=== PATIENT | male | born 1990 | race Caucasian/White ===

== ENCOUNTER 2022-06-20 05:31 | Emergency (ER) | payer BC ==
[~2022-06-20] VITALS: Ht 167.6 cm; Wt 77.1 kg
[2022-06-20 05:52] VITALS: BP_SYST 134
--- NOTE | 2022-06-20 06:02 | NUR ---
Patient triaged and placed in ED RM 5. VSS and patient appears in no acute distress at this time. MD MURRIETA notified of need for MSE. Report given to TABATHA Rose.
--- NOTE | 2022-06-20 06:15 | NUR ---
URINE WALKED TO LAB
--- NOTE | 2022-06-20 06:20 | NUR ---
C/O ABD PAIN X 2-3 DAYS ASSOCIATED WITH X1 EPISODE OF BURNING SENSATION DURING URINATION AFTER INTERCOURSE. DENIES N/V, FEVERS.
[2022-06-20 06:35] LABS: BILIRUBIN,URINE NEGATIVE (NEGATIVE); BLOOD, URINE NEGATIVE (NEGATIVE); CLARITY/URINE CLEAR (CLEAR); COLOR,URINE YELLOW (YELLOW); GLUCOSE,URINE NEGATIVE (NEGATIVE); KETONES,URINE NEGATIVE (NEGATIVE); LEUKOCYTE ESTERASE ,URINE NEGATIVE (NEGATIVE); NITRITE, URINE NEGATIVE (NEGATIVE); PROTEIN URINE NEGATIVE (NEGATIVE); UROBILINOGEN,URINE 0.2 (0.2-1.0)
--- NOTE | 2022-06-20 07:30 | NUR ---
DR. MURRIETA AT BEDSIDE TO DISCUSS POC.
[2022-06-20 07:45] VITALS: BP_SYST 213
--- NOTE | 2022-06-20 07:46 | NUR ---
Patient given written and verbal discharge instructions and verbalizes understanding. ER MD discussed with patient the results and treatment provided. Patient in stable condition. ID arm band removed. Patient educated on pain management and to follow up with PMD. Pain Scale 0/10. Opportunity for questions provided and answered. Medication side effect fact sheet provided.
== END 2022-06-20 07:41 | disposition home or self-care (01) ==
LOC: SED 05:31
DX: R10.13 Epigastric pain (principal); R30.0 Dysuria; R07.9 Chest pain, unspecified; Z79.899 Other long term (current) drug therapy
CPT/HCPCS: 36415; 81000; 81003; 87491; 99283

== ENCOUNTER 2023-02-10 06:05 | Day surgery (SDC) | payer BC ==
[~2023-02-10] VITALS: Ht 167.6 cm; Wt 77.1 kg
[2023-02-10 06:59] VITALS: PULSE 83; RESP 19; TEMP 98.9; O2SAT 99
[2023-02-10] MEDS ORDERED: ACETAMINOPHEN I.V. 1000 MG 100 ML IV ONE (07:32)
[2023-02-10] MEDS ORDERED: DESFLURANE 15 MIN GAS INH ONE (07:39)
[2023-02-10] MEDS ORDERED: LIDOCAINE 2%, 20 ML MDV ONE (07:39)
[2023-02-10] MEDS ORDERED: ONDANSETRON HCL 4 MG/2 ML VIAL ONE (07:39)
[2023-02-10] MEDS ORDERED: LIDOCAINE/EPI 1% 1:100000 20 ML VIAL ONE (07:39)
[2023-02-10] MEDS ORDERED: SUGAMMADEX SODIUM 200 MG/2 ML VIAL IV ONE (07:39)
[2023-02-10] MEDS ORDERED: fentaNYL CITRATE/PF 100 MCG/2 ML AMP ONE (07:39)
[2023-02-10] MEDS ORDERED: DEXAMETHASONE SOD PHOSPHATE 4 MG/ML VIAL ONE (07:39)
[2023-02-10] MEDS ORDERED: PROPOFOL 200MG/ 20ML VIAL (DIPRIVAN) IV ONE (07:39)
[2023-02-10] MEDS ORDERED: ROCURONIUM BROMIDE 10 MG/ML (ZEMURON) ONE (07:39)
[2023-02-10] MEDS ORDERED: MIDAZOLAM HCL 2 MG/2 ML VIAL (VERSED) ONE ×2 (07:39→09:56)
[2023-02-10] MEDS ORDERED: NS IRRIG SOLN 1000 ML IR ONE (07:39)
[2023-02-10] MEDS ORDERED: LR 1,000 ML IV.SOLN IV ONE (07:39)
[2023-02-10] MEDS ORDERED: LR 1,000 ML IV SCH (08:30)
[2023-02-10] MEDS ORDERED: hydrALAZINE HCL 20 MG/ML VIAL IVP PRN (08:30)
[2023-02-10] MEDS ORDERED: LABETALOL 100 MG/ 20ML VIAL IVP PRN (08:30)
[2023-02-10] MEDS ORDERED: HYDROmorphone 1 MG/ML INJ. CARTRIDGE IVP PRN ×2 (08:30)
[2023-02-10] MEDS ORDERED: METOCLOPRAMIDE HCL 10 MG/2 ML VIAL IVP PRN (08:30)
[2023-02-10] MEDS ORDERED: MEPERIDINE HCL/PF 25 MG/ML DISP.SYRIN IVP PRN (08:30)
[2023-02-10 09:18] VITALS: BP_SYST 125
[2023-02-10] MEDS ORDERED: MIDAZOLAM HCL 2 MG/2 ML VIAL (VERSED) IVP ONE (10:00)
== END 2023-02-10 12:06 | disposition home or self-care (01) ==
LOC: SDS 06:05 → SMU 06:06 → SDS 12:06
PROVIDERS: ATTEND Otolaryngology
DX: J34.2 Deviated nasal septum (principal); D38.5 Neoplasm of uncertain behavior of other respiratory organs; J34.3 Hypertrophy of nasal turbinates; K21.9 Gastro-esophageal reflux disease without esophagitis; G47.33 Obstructive sleep apnea (adult) (pediatric); J45.909 Unspecified asthma, uncomplicated; F41.9 Anxiety disorder, unspecified; Z87.891 Personal history of nicotine dependence; Z79.899 Other long term (current) drug therapy
CPT/HCPCS: 30520; 88304; 30140; J3490; J1100; J2001; J3465; J2405; J2704; J3010; J7120; J0131; 88311

== ENCOUNTER 2023-03-28 03:31 | Emergency (ER) | payer BC ==
[~2023-03-28] VITALS: Ht 167.6 cm; Wt 77.1 kg
[2023-03-28 03:42] VITALS: BP_SYST 109; PULSE 60; RESP 16; TEMP 98.3; O2SAT 99
[2023-03-28] MEDS ORDERED: SULF15DR6 LEFT EYE (04:04)
[2023-03-28 04:12] VITALS: BP_SYST 109; PULSE 60; RESP 16; TEMP 98.3; O2SAT 99
== END 2023-03-28 04:12 | disposition home or self-care (01) ==
LOC: SED 03:31
DX: T15.02XA Foreign body in cornea, left eye, initial encounter (principal); Z79.899 Other long term (current) drug therapy; W44.8XXA Other foreign body entering into or through a natural orifice, initial encounter; Y93.89 Activity, other specified; Y92.89 Other specified places as the place of occurrence of the external cause; Y99.8 Other external cause status
CPT/HCPCS: 99284

== ENCOUNTER 2023-09-07 11:41 | Emergency (ER) | payer BC ==
[~2023-09-07] VITALS: Ht 167.6 cm; Wt 79.4 kg
[~2023-09-07 11:41] MED LIST: SULF15DR6 LEFT EYE
[2023-09-07 11:48] VITALS: BP_SYST 117; PULSE 66; RESP 19; TEMP 98; O2SAT 99
[2023-09-07] MEDS ORDERED: DIPH-TET Vacc 0.5 ML VIAL I.M. ONE (12:20)
[2023-09-07] MEDS: DIPHTH,PERTUSS(ACELL),TET VAC 0.5 ML VIAL (Tdap) I.M. ONE (12:48)
[2023-09-07 12:53] VITALS: BP_SYST 117; PULSE 66; RESP 19; TEMP 98; O2SAT 99
[2023-09-07] MEDS ORDERED: LIDOCAINE/EPI 1% 1:100000 20 ML VIAL ONE (15:36)
== END 2023-09-07 12:54 | disposition home or self-care (01) ==
LOC: SED 11:41
DX: S61.211A Laceration without foreign body of left index finger without damage to nail, initial encounter (principal); Z79.899 Other long term (current) drug therapy; W26.8XXA Contact with other sharp object(s), not elsewhere classified, initial encounter; Y93.89 Activity, other specified; Y92.89 Other specified places as the place of occurrence of the external cause; Y99.8 Other external cause status
CPT/HCPCS: 90714; 99283

== ENCOUNTER 2023-09-07 15:31 | Emergency (ER) | payer BC ==
[~2023-09-07] VITALS: Ht 167.6 cm; Wt 79.4 kg
[2023-09-07 15:41] VITALS: BP_SYST 122; PULSE 85; RESP 20; TEMP 98.3; O2SAT 98
[2023-09-07 16:17] VITALS: BP_SYST 122; PULSE 85; RESP 20; TEMP 98.3; O2SAT 98
== END 2023-09-07 16:17 | disposition home or self-care (01) ==
LOC: SED 15:31
DX: S61.211A Laceration without foreign body of left index finger without damage to nail, initial encounter (principal); Z79.899 Other long term (current) drug therapy; W26.0XXA Contact with knife, initial encounter; Y93.89 Activity, other specified; Y92.89 Other specified places as the place of occurrence of the external cause; Y99.8 Other external cause status
CPT/HCPCS: 99282

== ENCOUNTER 2024-03-13 12:47 | Emergency (ER) | payer BC ==
[~2024-03-13] VITALS: Ht 167.6 cm; Wt 81.6 kg
[2024-03-13 12:59] VITALS: BP_SYST 126; PULSE 71; RESP 18; TEMP 98.6; O2SAT 99
== END 2024-03-13 14:45 | disposition left against medical advice (07) ==
LOC: SED 12:47
DX: R10.9 Unspecified abdominal pain (principal); Z53.21 Procedure and treatment not carried out due to patient leaving prior to being seen by health care provider